=== PATIENT | female | born 1985 | race Caucasian/White ===

== ENCOUNTER 2017-05-19 13:24 | Emergency (ER) | payer OTHER ==
[~2017-05-19] VITALS: Ht 175.3 cm; Wt 72.6 kg
[2017-05-19 13:38] VITALS: BP 122/74
--- NOTE | 2017-05-19 13:43 | NUR ---
Patient to OF.
--- NOTE | 2017-05-19 14:04 | NUR ---
PATIENT PRESENTS TO ED WITH COUGH, PAIN UPON SWALLOWING, ANTERIOR CHEST WALL SHARP PAIN X 1 WK . PT STATES . DENIES N/V/D; SKIN IS PINK/WARM/DRY; AAOX4 WITH EVEN AND STEADY GAIT; LUNGS CLEAR BL; HR EVEN AND REGULAR; PATIENT STATES PAIN OF 6/10 AT THIS TIME; VSS; PATIENT POSITIONED FOR COMFORT; HOB ELEVATED; BEDRAILS UP X2; BED DOWN. ER MD MADE AWARE OF PT STATUS.
--- NOTE | 2017-05-19 14:05 | NUR ---
to radiology via wheel chair
--- NOTE | 2017-05-19 14:12 | NUR ---
returned from radiology
[2017-05-19] MEDS ORDERED: LIDOCAINE VISCOUS 2% 20 ML UDC PO ONE (15:05)
--- NOTE | 2017-05-19 15:17 | NUR ---
Patient discharged with v/s stable. Written and verbal after care instructions given and explained. Patient alert, oriented and verbalized understanding of instructions. Ambulatory with steady gait. All questions addressed prior to discharge. ID band removed. Patient advised to follow up with PMD. Rx of phenergan dm given. Patient educated on indication of medication including possible reaction and side effects. Opportunity to ask questions provided and answered.
[2017-05-19 15:19] VITALS: BP 125/68
== END 2017-05-19 15:17 | disposition home or self-care (01) ==
LOC: MED 13:24
DX: J04.0 Acute laryngitis (principal)
CPT/HCPCS: 71010; 99283

== ENCOUNTER 2018-07-26 08:06 | Emergency (ER) | payer OTHER ==
[~2018-07-26] VITALS: Ht 175.3 cm; Wt 77.1 kg
[2018-07-26 08:06] VITALS: BP 120/79
--- NOTE | 2018-07-26 08:06 | NUR ---
PT AMBULATED TO BED 9 FOR BEDSIDE TRIAGE, URINE OBTAINED
--- NOTE | 2018-07-26 08:14 | NUR ---
33 Y FEMALE BIB SELF C/O LOWER LEFT ABDOMINAL PAIN X 3 WEEKS, 6/10 PAIN, SPOTTING VAGINAL DISCHARGE. MISSED PERIOD HAS TAKEN AT HOME TEST WITH NEG RESULTS BED IS DOWN, LOCKED, BED RAIL X 1, ERMD IS NOTIFIED OF PATIENT STATUS PMH: NONE RX: NONE
--- NOTE | 2018-07-26 08:24 | NUR ---
DR RAMOS AT BEDSIDE
[2018-07-26 08:39] LABS: BASOPHILS # (AUTO) 0.1 K/uL (0.00-0.22); EOSINOPHILS # (AUTO) 0.3 K/uL (0-0.4); EOSINOPHILS % (AUTO) 3.3 % (0.0-4.0); HEMATOCRIT 43.3 % (36-48); HEMOGLOBIN 14.3 g/dL (12.0-16.0); LYMPHOCYTES # (AUTO) 3.2 K/uL (2.5-16.5); LYMPHOCYTES % (AUTO) 41.7 % (20.5-51.1); MEAN CORPUSCULAR HEMOGLOBIN 29 pg (27-31); MEAN CORPUSCULAR HGB CONC 33 g/dL (33-37); MEAN CORPUSCULAR VOLUME 86.4 fL (80-94); MONOCYTES # (AUTO) 0.6 K/uL (0.8-1.0); MONOCYTES % (AUTO) 7.8 % (1.7-9.3); NEUTROPHILS # (AUTO) 3.6 K/uL (1.8-7.7); NEUTROPHILS % (AUTO) 46.2 % (42.2-75.2); PLATELET COUNT (AUTO) 181 K/uL (140-450); RED BLOOD CELL COUNT(AUTO) 5.01 MIL/uL (4.20-5.40); WHITE BLOOD COUNT (AUTO) 7.8 K/uL (4.8-10.8)
[2018-07-26 08:41] LABS: BILIRUBIN,URINE NEGATIVE (NEGATIVE); BLOOD, URINE TRACE-I (NEGATIVE); COLOR,URINE YELLOW (YELLOW); LEUKOCYTE ESTERASE ,URINE TRACE (NEGATIVE); NITRITE, URINE NEGATIVE (NEGATIVE); PH,URINE 6.5 (5.0-9.0); UGLUCOSE NEGATIVE (NEGATIVE)
[2018-07-26 08:57] LABS: APPEARANCE,URINE CLEAR (CLEAR); RBC,URINE NONE SEEN /HPF (0-5); WBC,URINE 0-5 (RARE) /HPF (0-5)
[2018-07-26 09:07] LABS: ALBUMIN 3.6 g/dL (3.4-5.0); CARBON DIOXIDE 26.8 mmol/L (21-32); CREATININE 0.8 mg/dL (0.6-1.3); POTASSIUM 3.8 mmol/L (3.5-5.1); TOTAL BILIRUBIN 0.5 mg/dL (0.0-1.0)
[2018-07-26 09:31] VITALS: BP 120/79
--- NOTE | 2018-07-26 09:31 | NUR ---
Patient discharged with v/s stable. Written and verbal after care instructions given and explained. Patient alert, oriented and verbalized understanding of instructions. Ambulatory with steady gait. All questions addressed prior to discharge. ID band removed. Patient advised to follow up with PMD. Rx of NORCO, MOTRIN given. Patient educated on indication of medication including possible reaction and side effects. Opportunity to ask questions provided and answered.
== END 2018-07-26 09:31 | disposition home or self-care (01) ==
LOC: MED 08:06
DX: R10.32 Left lower quadrant pain (principal)
CPT/HCPCS: 36415; 80053; 81001; 81002; 81025; 83690; 84702; 85025; 99283

== ENCOUNTER 2021-01-24 21:12 | Emergency (ER) | payer OTHER ==
[~2021-01-24] VITALS: Ht 175.3 cm; Wt 81.6 kg
[2021-01-24 21:35] VITALS: BP 124/96
--- NOTE | 2021-01-24 21:35 | NUR ---
SEEN AND EXAMINED BY ERMD IN TRIAGE ROOM. TO LOBBY AMBULATORY
--- NOTE | 2021-01-24 22:13 | NUR ---
AMBULATED TO ER BED 6
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
--- NOTE | 2021-01-24 22:20 | NUR ---
PATIENT TAKEN TO CT VIA WHEEL CHAIR.
[2021-01-24] MEDS: KETOROLAC 30 MG/ML VIAL IVP ONE (23:34)
[2021-01-25] VITALS: BP 116/55
--- NOTE | 2021-01-25 | NUR ---
PATIENT LAYING IN BED LOCKED IN LOWEST POSITION, X1 SIDE RAIL UP. HOB ELEVATED. PATIENT REPORTS PAIN IMPROVEMENT TO 4/10. PATINET CONNECTED TO MONITOR W VSS. WILL CONTINUE TO MONITOR.
--- NOTE | 2021-01-25 01:10 | NUR ---
IV removed, catheter intact and site benign. Applied folded 4x4 gauze and tape to stop bleeding.
--- NOTE | 2021-01-25 01:15 | NUR ---
Patient discharged with v/s stable. Written and verbal after care instructions given and explained. Patient verbalized understanding. Ambulatory with steady gait. All questions addressed prior to discharge. Advised to follow up with PMD.
== END 2021-01-25 01:15 | disposition home or self-care (01) ==
LOC: MED 21:12
DX: S16.1XXA Strain of muscle, fascia and tendon at neck level, initial encounter (principal); S09.90XA Unspecified injury of head, initial encounter; S29.9XXA Unspecified injury of thorax, initial encounter; S39.91XA Unspecified injury of abdomen, initial encounter; V98.8XXA Other specified transport accidents, initial encounter; Y93.89 Activity, other specified; Y92.89 Other specified places as the place of occurrence of the external cause; Y99.8 Other external cause status
CPT/HCPCS: 70450; 71260; 72125; 74177; 81025; 96374; 99285; J1885; Q9967